=== PATIENT | female | born 1980 | race African-American/Black ===

== ENCOUNTER 2018-07-31 11:05 | Outpatient (CLI) | payer BC ==
[~2018-07-31] VITALS: Ht 170.2 cm; Wt 92.1 kg
[2018-07-31] MEDS ORDERED: EMPA1TAB15 PO (11:17)
[2018-07-31 11:44] LABS: BASOPHILS % (AUTO) 0 % (0-10); EOSINOPHILS # (AUTO) 0.3 10^3/uL (0.0-0.3); EOSINOPHILS % (AUTO) 2 % (0-10); HEMATOCRIT 40 % (35-52); HEMOGLOBIN 13.5 G/DL (11.5-16.0); LYMPHOCYTES # (AUTO) 4.8 X 10^3 (1.0-4.0); LYMPHOCYTES % (AUTO) 43 % (12-44); MEAN CORPUSCULAR HEMOGLOBIN 28 PG (25-34); MEAN CORPUSCULAR HGB CONC 34 G/DL (32-36); MEAN CORPUSCULAR VOLUME 81 FL (80-99); MEAN PLATELET VOLUME 10.3 FL (7.4-10.4); MONOCYTES # (AUTO) 1.1 X 10^3 (0.0-1.0); MONOCYTES % (AUTO) 10 % (0-12); NEUTROPHILS # (AUTO) 5.1 X 10^3 (1.8-7.8); NEUTROPHILS % (AUTO) 45 % (42-75); PLATELET COUNT 341 10^3/uL (130-400); RED BLOOD COUNT 4.89 10^6/uL (4.35-5.85); RED CELL DISTRIBUTION WIDTH 13.8 % (10.0-14.5); WHITE BLOOD COUNT 11.3 10^3/uL (4.3-11.0)
[2018-07-31 12:49] VITALS: BP 134/83
[2018-08-02] MEDS ORDERED: DOCU-143 PO (15:10)
[2018-08-02] MEDS ORDERED: IBUP-1773 PO (15:10)
[2018-08-02] MEDS ORDERED: OXYC1TAB87 PO (15:10)
== END 2018-07-31 11:40 | disposition home or self-care (01) ==
LOC: PREOP 11:05
PROVIDERS: ATTEND Obstetrics & Gynecology
DX: Z01.812 Encounter for preprocedural laboratory examination (principal); Z11.2 Encounter for screening for other bacterial diseases; N93.8 Other specified abnormal uterine and vaginal bleeding; N92.0 Excessive and frequent menstruation with regular cycle; D64.9 Anemia, unspecified
CPT/HCPCS: 36415; 84703; 85025; 86850; 86900; 86901; 87081

== ENCOUNTER 2018-08-02 12:24 | Day surgery (SDC) | payer BC ==
[~2018-08-02] VITALS: Ht 170.2 cm; Wt 92.1 kg
[~2018-08-02 12:24] MED LIST: EMPA1TAB15 PO; LACTATED RINGERS 1,000 ML IV PRN
[2018-08-02 12:45] VITALS: BP 121/85
[2018-08-02] MEDS ORDERED: NS (IVPB) 50 ML ONE (13:52)
[2018-08-02] MEDS ORDERED: ceFAZolin 1,000 MG/10 ML (ANCEF) VIAL ONE (13:52)
[2018-08-02] MEDS ORDERED: ceFAZolin INJECTION 1,000 MG in NS (IVPB) 50 ML IV ONE (14:00)
[2018-08-02] MEDS ORDERED: fentaNYL INJECTION 100 MCG/2 ML AMP ONE ×2 (14:38→16:29)
[2018-08-02] MEDS ORDERED: MIDAZOLAM 2 MG/2 ML (VERSED) VIAL ONE (14:38)
--- OUTSIDE RECORDS SUMMARY | 2018-08-02 14:42 | XMS REPORT ---
Author Author Tiana Mondragon [facility] Address [address] [place] [id number] Care Team Providers Care Singe Machine Operator Name Role Phone Tiana Mondragon PCP Allergies and Adverse Reactions Name Reaction Notes No known drug allergy Plan of Treatment Not available. Medications Not available. Problem List Not available. Vital Signs Date Time BP-Sys(mm[Hg] BP-Anisa(mm[Hg]) HR(bpm) RR(rpm) Temp WT HT HC BMI BSA BMI Percentile O2 Sat(%) 05/11/2018 3:32:00 PM 122 mmHg 84 mmHg 68 bpm 98.2 F 208 lbs 67 in 32.5771 kg/m 2.1119 m Social History Name Description Comments Tobacco Never smoker History of Procedures Date Ordered Description Order Status 05/11/2018 3:39 PM URINE TEST Reviewed 05/11/2018 12:00 AM BX/CURETT OF CERVIX W/SCOPE Returned 05/11/2018 12:00 AM EXAM/BIOPSY OF VAG W/SCOPE Returned 05/11/2018 12:00 AM ENDOCERV CURETTAGE W/SCOPE Returned Results Summary Date and Description Results 05/11/2018 4:02 PM Test, Urine negative History Of Immunizations Not available. History of Past Illness Name Date of Onset Comments Asthma Encounter for test, result negative May 11 2018 3:39PM Low grade squamous intraepith lesion on cytologic smear cervix (lgsil) May 11 2018 3:34PM Payers Insurance Name Company Name Plan Name Plan Number Policy Number Policy Group Number Start Date [facility] [id number] N/A History of Encounters Visit Date Visit Type Provider 05/11/[address] Tiana Mondragon MD
--- OUTSIDE RECORDS SUMMARY | 2018-08-02 14:42 | XMS REPORT ---
Author Author Tiana Mondragon [facility] Address [address] [place], [place] [address] Care Team Providers Care Professor Of Sport Management Name Role Phone Tiana Mondragon PCP Allergies [...] Status 05/11/2018 3:39 PM URINE TEST Reviewed Results Summary Date and Description Results 05/11/2018 [...] Policy Number Policy Group Number Start Date BCBS [facility] [id number] N/A History of Encounters Visit Date Visit Type Provider 05/11/[address] Tiana Mondragon MD
--- OUTSIDE RECORDS SUMMARY | 2018-08-02 14:42 | XMS REPORT ---
Author Author Tiana Mondragon [facility] Address [address] [place], [place] [address] Care Team Providers Care Dowel Pointer Name Role Phone Tiana Mondragon PCP Allergies [...] Number Policy Group Number Start Date BCBS [facility] [id number] N/A History of Encounters Visit Date Visit Type Provider 05/11/[address] Tiana Mondragon MD
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
--- OUTSIDE RECORDS SUMMARY | 2018-08-02 14:43 | XMS REPORT ---
Author Author OLGA SATPLETON [facility] Address [address] [place] [address] Care Team Providers Care Property Field Inspector Name Role Phone OLGA STAPLETON Unavailable PROBLEMS ALLERGIES No Information ENCOUNTERS IMMUNIZATIONS No Known Immunizations SOCIAL HISTORY No smoking Hx information available REASON FOR VISIT PLAN OF CARE VITAL SIGNS MEDICATIONS Unknown Medications RESULTS No Results PROCEDURES No Known procedures INSTRUCTIONS MEDICATIONS ADMINISTERED No Known Medications MEDICAL (GENERAL) HISTORY
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
--- OUTSIDE RECORDS SUMMARY | 2018-08-02 14:43 | XMS REPORT ---
Author Author Tiana Mondragon [facility] Address [address] [place], [place] [id number] Care Team Providers Care Game Developer Name Role Phone Tiana Mondragon PCP Allergies [...] test, result negative May 11 2018 3:39PM Payers Insurance Name Company Name Plan Name Plan Number Policy Number Policy Group Number [id number] N/A History of Encounters Visit Date Visit Type Provider 05/11/[address] Tiana Mondragon MD
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
--- OUTSIDE RECORDS SUMMARY | 2018-08-02 14:44 | XMS REPORT ---
Author Author OLGA STAPLETON [facility] [employer] Address Unknown Phone Unavailable Care Team Providers Care Computer Hardware Engineer Name Role Phone OLGA STAPLETON CP Unavailable Allergies, Adverse Reactions, Alerts Substance Reaction Event Type N.K.D.A. Info Not Available Non Drug Allergy Problems Problem Type Condition Code Onset Dates Condition Status Assessment Routine gynecological examination Z01.419 Active Assessment Surveillance for Depo-Provera contraception Z30.42 Active Problem Pain in soft tissues of limb 729.5 Active Problem Lumbago 724.2 Active Problem Surveillance for Depo-Provera contraception V25.49 Active Problem Screening for malignant neoplasm of the cervix V76.2 Active Problem Colitis, enteritis, and gastroenteritis of presumed infectious origin 009.1 Active Problem Unspecified contraceptive management V25.9 Active Problem Special screening examination, human papillomavirus [HPV] V73.81 Active Medications Medication Code System Code Instructions Start Date End Date Status Dosage Depo-Provera [facility] [id number] 150 MG/ML Intramuscular 1 ml Procedures Procedure Coding System Code Date Preventive Care Est Pt. Age 18-39 CPT-4 13252 Mar 11, 2016 CULTURE, BACTERIA, OTHER CPT-4 73346 Mar 11, 2016 Vital Signs Date/Time: Mar 11, 2016 Cardiac Monitoring Heart Rate 78 bpm Weight 193.2 lbs Height 67 in BMI 30.26 Index Blood Pressure Diastolic 80 mmHg Blood Pressure Systolic 118 mmHg Results No Known Results Summary Purpose eClinicalWorks Submission
--- OUTSIDE RECORDS SUMMARY | 2018-08-02 14:44 | XMS REPORT ---
Author Author OLGA STAPLETON [facility] eClinical[employer] Address Unknown Phone Unavailable Care Team Providers Care Slope Tender Name Role Phone OLGA STAPLETON Unavailable Allergies No Known Allergies Problems Problem Type Condition Code Onset Dates Condition Status Assessment Encounter for contraceptive management V25.9 Active Problem Pain in soft tissues of limb 729.5 Active Problem Lumbago 724.2 Active Problem Surveillance for Depo-Provera contraception V25.49 Active Problem Screening for malignant neoplasm of the cervix V76.2 Active Problem Colitis, enteritis, and gastroenteritis of presumed infectious origin 009.1 Active Problem Unspecified contraceptive management V25.9 Active Problem Special screening examination, human papillomavirus [HPV] V73.81 Active Medications No Known Medications Procedures Procedure Coding System Code Date THER/PROPH/DIAG INJ, SC/IM CPT-4 80686 Sep 18, 2015 DEPO PROVERA (150 MG/ML) CPT-4 J1050 Sep 18, 2015 Results No Known Results Summary Purpose eClinicalWorks Submission
--- OUTSIDE RECORDS SUMMARY | 2018-08-02 14:44 | XMS REPORT ---
Author Author OLGA STAPLETON [facility] [employer] Address Unknown Phone Unavailable Care Team Providers Care Warehouse Checker Name Role Phone OLGA STAPLETON CP Unavailable Allergies No Known Allergies Problems Problem Type Condition Code Onset Dates Condition Status Assessment Encounter for Depo-Provera contraception Z30.42 Active Problem Pain [...] Medications Procedures Procedure Coding System Code Date DEPO PROVERA (150 MG/ML) CPT-4 J1050 March 03, 2016 THER/PROPH/DIAG INJ, SC/IM CPT-4 12876 March 03, 2016 URINE TEST CPT-4 14959 March 03, 2016 Results No Known Results Summary Purpose eClinicalWorks Submission
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
--- OUTSIDE RECORDS SUMMARY | 2018-08-02 14:44 | XMS REPORT ---
Author Author OLGA STAPLETON [facility] [place] Address [address] [place] [address] Care Team Providers Care Nutritional Chemist Name Role Phone OLGA STAPLETON Unavailable PROBLEMS Type Condition ICD9-CM Code KEK14-UJ Code Onset Dates Condition Status SNOMED Code Problem Colitis, enteritis, and gastroenteritis of presumed infectious origin 009.1 Active 994103889 Assessment Acute bilateral low back pain with right-sided sciatica M54.41 Apr, Active 025501923 Problem Surveillance for Depo-Provera contraception V25.49 Active 108520393 Problem Pain in soft tissues of limb 729.5 Active 85113827 Problem Special screening examination, human papillomavirus [HPV] V73.81 Active 951070612 Problem Screening for malignant neoplasm of the cervix V76.2 Active 667221593 Problem Lumbago 724.2 Active 037992834 Problem Unspecified contraceptive management V25.9 Active 161556754 ALLERGIES Substance Reaction Event Type Date Status N.K.D.A. Unknown Non Drug Allergy Apr, Unknown SOCIAL HISTORY No smoking Hx information available PLAN OF CARE VITAL SIGNS Height 67 in 2016-04-27 Weight 193.4 lbs 2016-04-27 Heart Rate 81 bpm 2016-04-27 Respiratory Rate 2016-04-27 BMI 30.29 kg/m2 2016-04-27 Blood pressure systolic 130 mmHg 2016-04-27 Blood pressure diastolic 86 mmHg 2016-04-27 MEDICATIONS Medication Instructions Dosage Frequency Start Date End Date Duration Status Depo-Provera 150 MG/ML 1 ml Active Hydrocodone-Acetaminophen 5-325 MG Orally 3 times a day 1 tablet as needed 8h Apr, Apr, 05 days Active Ibuprofen 200 MG Orally Once a day 2 tab 24h Active Cyclobenzaprine HCl 10 mg Orally Three times a day 1 tablet 8h Apr, May, 14 days Active PredniSONE 20 mg Orally Once a day 3 tabs daily x 3 days, 2 tabs daily x 3 days, 1 tab daily x 3 days 24h 20 Apr, 2016 Apr, 9 days Active RESULTS Name Result Date Reference Range Xray : Spine, Lumbar 4 views PROCEDURES Procedure Date Ordered Related Diagnosis Body Site Office Visit, Est Pt., Level 3 Apr 27, 2016 IMMUNIZATIONS No Known Immunizations
--- OUTSIDE RECORDS SUMMARY | 2018-08-02 14:44 | XMS REPORT ---
Author Author JORJE KESSLER [facility] [employer] Address Unknown Phone Unavailable Care Team Providers Care Acoustical Tile Carpenters Supervisor Name Role Phone JORJE KESSLER Unavailable Allergies No Known Allergies Problems Problem Type Condition ICD-9 Code Onset Dates Condition Status Assessment Encounter [...] Date DEPO PROVERA (150 MG/ML) CPT-4 J1050 Mar 25, 2015 THER/PROPH/DIAG INJ, SC/IM CPT-4 72640 Mar 25, 2015 URINE TEST CPT-4 77250 Mar 25, 2015 Results Name Result Date Reference Range Unit Abnormality Flag TEST, URINE (IN HOUSE) Summary Purpose eClinicalWorks Submission
--- OUTSIDE RECORDS SUMMARY | 2018-08-02 14:44 | XMS REPORT ---
Author Author OLGA STAPLETON [facility] Address [address] [place] [address] Care Team Providers Care Per Diem Clerk Name Role Phone OLGA STAPLETON Unavailable PROBLEMS Type Condition ICD9-CM Code NQQ21-DA Code Onset Dates Condition Status SNOMED Code Problem Unspecified contraceptive management V25.9 Active 076092233 Problem Screening for malignant neoplasm of the cervix V76.2 Active 977206534 Problem Hyperlipidemia, unspecified hyperlipidemia type E78.5 Active 69194536 Problem Surveillance for Depo-Provera contraception V25.49 Active 808872266 Problem Pain in soft tissues of limb 729.5 Active 90457027 Problem Special screening examination, human papillomavirus [HPV] V73.81 Active 495914900 Problem Colitis, enteritis, and gastroenteritis of presumed infectious origin 009.1 Active 174704732 Problem Lumbago 724.2 Active 915887085 ALLERGIES No Information ENCOUNTERS Encounter Location Date Diagnosis [facility] [address] [id number] [place] [address] Feb Encounter for Depo-Provera contraception Z30.42 [facility] [address] [id number] [place] [address] December Bug bite, initial encounter W57.XXXA [facility] [address] [id number] [place] [address] December Weight gain R63.5 [facility] [address] [id number] [place] [address] Nov Encounter for Depo-Provera contraception Z30.42 [facility] [address] [id number] [place] [address] Nov Weight gain R63.5 [facility] [address] [place] [address] Aug Encounter for Depo-Provera contraception Z30.42 [facility] [address] [id number] [place] [address] Aug Whiplash injury to neck, initial encounter S13.4XXA [facility] [address] [id number] [place] [address] Jul Acute rhinosinusitis J01.90 [facility] [address] [id number] [place] [address] Jun Hyperlipidemia, unspecified hyperlipidemia type E78.5 [facility] [address] [id number] [place] [address] May Weight gain R63.5 ; Negative test Z32.02 and Encounter for Depo-Provera contraception Z30.42 [facility] [address] [id number] [place] [address] Mar Surveillance for Depo-Provera contraception V25.49 [facility] [address] [id number] [place] [address] Mar Weight gain R63.5 [facility] [address] [id number] [place] [address] Mar Well woman exam with routine gynecological exam Z01.419 ; Breast cancer screening Z12.31 and BCP ( control pills) initiation Z30.011 [facility] [address] [id number] [place] [address] Apr Acute bilateral low back pain with right-sided sciatica M54.41 [facility] [address] [id number] [place] [address] Mar Routine gynecological examination Z01.419 and Surveillance for Depo- Provera contraception Z30.42 [facility] [address] [id number] [place] [address] Feb Encounter for Depo-Provera contraception Z30.42 [facility] [address] [id number] [place] [address] Sep Encounter for contraceptive management V25.9 [facility] SINA Valentine TARIQE [id number] [place] [address] Jun Acute nasopharyngitis J00 and Depo contraception Z30.40 [facility] [place] [id number] [id number] Mar, Encounter for contraceptive management V25.9 [facility] [place] [id number] [place] [id number] Feb, Pharyngitis 462 [facility] [place] [id number] [place] [id number] Feb, Surveillance for Depo-Provera contraception V25.49 [facility] [place] [id number] [place] [id number] December, Unspecified contraceptive management V25.9 [facility] [address] [place] [address] Nov, [facility] [id number] [place] [address]6 Nov, [facility] [place] [id number][place] [id number] Oct, [facility] [address] [place] [address] Oct, [facility] [place] [id number] [place] [id number] Oct, [facility] [address] [place] [address] Oct, [facility] [place] [id number][place] [id number] Jun, [facility] [id number] [place] [address] Jun, [facility] [place] [id number][place] [id number] Mar, [facility] [id number] [place] [address] Mar, [facility] [address] [id number], [place] [address] Jan, [facility] [address] [id number] [place] [id number] Jan, [facility] [place] [facility] [address] [facility] [id number] [address] Jan, [facility] [address] [facility] [id number] [place] [id number] Jan, [facility] [place] [facility] [address] [facility] [id number] [place] [address] Jan, [facility] [address] [id number] [place] [id number] Jan, [facility] [place] [facility] [address] [facility] [id number][place] [address] Jan, [facility] [place] [facility] [address] [place] [address] Jan, [facility] [place] [facility] [address] [id number] [address] December, [facility] [place] [facility] [address] [facility] [id number] [place] [address] December, [facility] [address] [facility] [id number][place] [id number] December, [facility] [place] [facility] [address] [id number] [address] December, [facility] [address] [id number][place] [id number] Aug, [facility] [place] [facility] [address] [id number][place] [address] Aug, [facility] [place] [facility] [address] [facility] [id number], [place] [address] Nov, [facility] [address] [id number] [place] [id number] Aug, [facility] [address] [id number][place] [id number] Mar, [facility] [address] [id number] [place] [id number] Feb, [facility] [address] [id number] [place] [id number] Jan, [facility] [address] [id number] [place] [id number] Jan, [facility] [address] [id number] [place] [id number] Nov, [facility] [place] [facility] [address] [id number] [address] Jul, [facility] [place] [facility] [address] [id number], [place] [address] Jun, [facility] [place] [facility] [address] [facility] [id number] [address] Jun, [facility] [place] [facility] [address] [facility] [id number] [address] Jun, [facility] [place] [facility] [address] [facility] [id number][place] [address] Jun, [facility] [place] [facility] [address] [facility] [id number] [address] Jun, [facility] [place] [facility] [address] [id number] [address] 17 May, 2011 [facility] [place] [facility] [address] [facility] [id number] [address] May, [facility] [place] [facility] [address] [id number] [address] 10 May, 2011 [facility] [place] [facility] [address] [facility] [id number], [place] [address] 10 May, 2011 [facility] [place] [facility] [address] [facility] [id number], [place] [address] December, [facility] [place] [facility] [address] [facility] [id number] [address] 14 Nov, 2010 [facility] [place] [facility] [address] [facility] [id number] [place] [address] Aug, [facility] [address] [facility] [id number], [place] [address] Jun, [facility] [address] [facility] [id number] [address] Jun, [facility] [address] [facility] [id number] [address] Jun, [facility] [address] [facility] [id number] [address] May, IMMUNIZATIONS Vaccine Route Administration Date Status DEPO PROVERA (150 MG/ML) IM Intramuscular November 23, 2017 Administered SOCIAL HISTORY Never Assessed REASON FOR VISIT Depo Provera injection PLAN OF CARE VITAL SIGNS MEDICATIONS Unknown Medications RESULTS Name Result Date Reference Range TEST, URINE (IN HOUSE) RESULTS negative Lot # [id number] Control + Exp date 04/07/2019 PROCEDURES Procedure Date Ordered Result Body Site URINE TEST November 23, 2017 DEPO PROVERA (150 MG/ML) November 23, 2017 THER/PROPH/DIAG INJ, SC/IM November 23, 2017 INSTRUCTIONS MEDICATIONS ADMINISTERED No Known Medications MEDICAL (GENERAL) HISTORY Type Description Date Medical History asthma Surgical History hernia repair Hospitalization History child
--- OUTSIDE RECORDS SUMMARY | 2018-08-02 14:45 | XMS REPORT ---
Author Author OLGA STAPLETON [facility] Address [address] [place] [address] Care Team Providers Care Claims Consultant Name Role Phone OLGA STAPLETON Unavailable PROBLEMS Type Condition ICD9-CM Code QWC49-AM Code Onset Dates Condition Status SNOMED Code Problem Unspecified contraceptive management V25.9 Active 908828378 Problem Screening for malignant neoplasm of the cervix V76.2 Active 129812846 Problem Hyperlipidemia, unspecified hyperlipidemia type E78.5 Active 66613600 Problem Surveillance for Depo-Provera contraception V25.49 Active 056104122 Problem Pain in soft tissues of limb 729.5 Active 22265701 Problem Special screening examination, human papillomavirus [HPV] V73.81 Active 421570998 Problem Colitis, enteritis, and gastroenteritis of presumed infectious origin 009.1 Active 902646263 Problem Lumbago 724.2 Active 307208017 ALLERGIES No Information ENCOUNTERS Encounter Location Date [facility] [address] [id number] [place] [address] December Bug bite, initial encounter W57.XXXA [facility] [address] [id number] [place] [address] December Weight gain R63.5 [facility] [address] [id number] [place] [address] Nov Encounter for Depo-Provera contraception Z30.42 [facility] [address] [id number] [place] [address] Nov Weight gain R63.5 [facility] [address] [id number] [place] [address] Aug Encounter for Depo-Provera contraception Z30.42 [facility] [address] [id number] [place] [address] Aug Whiplash injury to neck, initial encounter S13.4XXA [facility] [address] [id number] [place] [address] Jul Acute rhinosinusitis J01.90 [facility] [address] [id number] [place] [address] Jun Hyperlipidemia, unspecified hyperlipidemia type E78.5 [facility] [address] [id number] [place] [address] May Weight gain R63.5 ; Negative test Z32.02 and Encounter for Depo-Provera contraception Z30.42 [facility] [address] [id number] [place] [address] Mar Surveillance for Depo-Provera contraception V25.49 [facility] [address] [id number] [place] [address] Mar Weight gain R63.5 [facility] [address] [id number] [place] [address] Mar Well woman exam with routine gynecological exam Z01.419 ; Breast cancer screening Z12.31 and BCP ( control pills) initiation Z30.011 [facility] [address] [id number] [place] [address] Apr Acute bilateral low back pain with right-sided sciatica M54.41 [facility] [address] [id number] [place] [address] Mar Routine gynecological examination Z01.419 and Surveillance for Depo- Provera contraception Z30.42 [facility] [place] [address] [id number] [place] [address] Feb Encounter for Depo-Provera contraception Z30.42 [facility] [address] [id number] [place] [address] Sep Encounter for contraceptive management V25.9 [facility] [address] [id number] [place] [address] Jun Acute nasopharyngitis J00 and Depo contraception Z30.40 [facility] [place] [address] [id number] [id number] Mar, Encounter for contraceptive management V25.9 [facility] [id number] [place] [id number] Feb, Pharyngitis 462 [facility] [place] [id number] [place] [id number] Feb, Surveillance for Depo-Provera contraception V25.49 [facility] [id number] [place] [id number] December, Unspecified contraceptive management V25.9 [facility] [id number] [place] [address] Nov, [facility] [place] [id number] [place] [address] Nov, [facility] [id number] [place] [id number] Oct, [facility] [place] [id number] [place] [address] Oct, [facility] [id number] [place] [address] [id number] Oct, [facility] [place] [id number] [place] [address] Oct, [facility] [id number] [place] [phone] Jun, [facility] [place] [id number] [place] [address] Jun, [facility] [id number] [place] [id number] Mar, [facility] [place] [id number] [place] [address] Mar, [facility] [place] [id number] [place] [address] Jan, [facility] [id number] [place] [id number] Jan, [facility] [place] [facility] [address] [id number] [place] [address] Jan, [facility] [address] [id number] [place] [id number] Jan, [facility] [place] [facility] [address] [id number] [place] [address] Jan, [facility] [address] [id number] [place] [id number] Jan, [facility] [place] [facility] [address] [id number] [place] [address] Jan, [facility] [place] [facility] [address] [facility] [id number] [place] [address] Jan, [facility] [place] [facility] [address] [facility] [id number] [place] [address] December, [facility] [place] [facility] [address] [facility] [id number] [place] [address] December, [facility] [address] [id number] [place]LAND[place] [id number] December, [facility] [place] [facility] [address] [facility] [id number] [place] [address] December, [facility] [address] [id number] [place] [phone] Aug, [facility] [place] [facility] [address] [facility] [id number] [address] Aug, [facility] [place] [facility] [address] [facility] [id number] [address] Nov, [facility] [address] [id number] [place] [id number] Aug, [facility] [address] [id number] [place] [id number] Mar, [facility] [address] [id number] [place] [phone] Feb, [facility] [address] [id number] [place] [phone] Jan, [facility] [address] [id number] [place] [id number] Jan, [facility] [address] [facility] [id number] [place] [phone] Nov, [facility] [place] [facility] [address] [id number] [place] [address] Jul, [facility] [place] [facility] [address] [id number] [place] [address], [place] [address] Jun, [facility] [place] [facility] [address] [id number] [place] [address] Jun, [facility] [place] [facility] [address] [id number] [place] [address], [place] [address] Jun, [facility] [place] [facility] [address] [facility] [id number] [place] [address] Jun, [facility] [place] [facility] [address] [facility] [id number] [address] Jun, [facility] [place] [facility] [address] [id number] [place] [address] May, [facility] [place] [facility] [address] [facility] [id number] [address] May, [facility] [place] [facility] [address] [facility] [id number][place] [address] May, [facility] [place] [facility] [address] [id number] [address] May, [facility] [place] [facility] [address] [id number] [address] December, [facility] [place] [facility] [address] [facility] [id number] [place] [address] 14 Nov, 2010 [facility] [place] [facility] [address] [id number][place] [address] 17 Aug, 2010 [facility] [place] [facility] [address] [id number][place] [address] 2546 Jun, [facility] [place] [address] [facility] [id number] [place] [address] Jun, [facility] [place] [address] [facility] [id number] [address] Jun, [facility] [place] [address] [facility] [id number][place] [address] May, IMMUNIZATIONS Vaccine Route Administration Date Status DEPO PROVERA (150 MG/ML) IM Intramuscular Aug 26, 2017 Administered SOCIAL HISTORY Never Assessed REASON FOR VISIT Depo Provera injection PLAN OF CARE VITAL SIGNS MEDICATIONS Unknown Medications RESULTS Name Result Date Reference Range TEST, URINE (IN HOUSE) 2017-08-26 RESULTS negative Lot # [id number] Control + Exp date 01/05/2019 PROCEDURES Procedure Date Ordered Result Body Site URINE TEST Aug 26, 2017 DEPO PROVERA (150 MG/ML) Aug 26, 2017 THER/PROPH/DIAG INJ, SC/IM Aug 26, 2017 INSTRUCTIONS MEDICATIONS ADMINISTERED No Known Medications MEDICAL (GENERAL) HISTORY Type Description Date Medical History asthma Surgical History hernia repair Hospitalization History child
--- OUTSIDE RECORDS SUMMARY | 2018-08-02 14:45 | XMS REPORT ---
Author Author OLGA STAPLETON [facility] [place] Address [address] [place] [address] Care Team Providers Care Manager Loss Prevention Name Role Phone OLGA STAPLETON Unavailable PROBLEMS Type Condition ICD9-CM Code WTE80-UY Code Onset Dates Condition Status SNOMED Code Problem Unspecified contraceptive management V25.9 Active 417620505 Problem Screening for malignant neoplasm of the cervix V76.2 Active 279697834 Problem Hyperlipidemia, unspecified hyperlipidemia type E78.5 Active 63050938 Problem Surveillance for Depo-Provera contraception V25.49 Active 409637218 Problem Pain in soft tissues of limb 729.5 Active 65378680 Problem Special screening examination, human papillomavirus [HPV] V73.81 Active 442119939 Problem Colitis, enteritis, and gastroenteritis of presumed infectious origin 009.1 Active 174418115 Problem Lumbago 724.2 Active 588472750 ALLERGIES No Information ENCOUNTERS Encounter Location Date Diagnosis [facility] [address] [id number] [place] [address] December [facility] Technologies[facility] [address] [id number] [place] [address] Nov Encounter for Depo-Provera contraception Z30.42 [facility] [address] [id number] [place] [address] Nov Weight gain R63.5 [facility] [address] [id number] [place] [address] Aug Encounter for Depo-Provera contraception Z30.42 [facility] [address] [id number] [place] [address] Aug Whiplash injury to neck, initial encounter S13.4XXA [facility]Qspe[facility] TechnologiesAlin [place] [address] [id number] [place] [address] Jul Acute rhinosinusitis J01.90 [facility] [address] [id number] [place] [address] Jun Hyperlipidemia, unspecified hyperlipidemia type E78.5 [facility] [address] [id number] [place] [address] May Weight gain R63.5 ; Negative test Z32.02 and Encounter for Depo-Provera contraception Z30.42 [facility] [place] [address] [id number] [place] [address] Mar Surveillance for Depo-Provera contraception V25.49 [facility] [place] [address] [id number] [place] [address] Mar Weight gain R63.5 [facility] [address] [id number] [place] [address] Mar Well woman exam with routine gynecological exam Z01.419 ; Breast cancer screening Z12.31 and BCP ( control pills) initiation Z30.011 [facility] [place] [address] [id number] [place] [address] Apr Acute bilateral low back pain with right-sided sciatica M54.41 [facility] [address] [id number] [place] [address] Mar Routine gynecological examination Z01.419 and Surveillance for Depo- Provera contraception Z30.42 [facility] [address] [id number] [place] [address] Feb Encounter for Depo-Provera contraception Z30.42 [facility] [place] [address] [id number] [place] [address] Sep Encounter for contraceptive management V25.9 [facility] [address] [id number] [place] [address] Jun Acute nasopharyngitis J00 and Depo contraception Z30.40 [facility] [address] [id number] [place] [id number] Mar, Encounter for contraceptive management V25.9 [facility] [address] [id number][place] [id number] Feb, Pharyngitis 462 [facility] [id number], [place] [address] Feb, Surveillance for Depo-Provera contraception V25.49 [facility] [address] [id number][place] [address] December, Unspecified contraceptive management V25.9 [facility] [id number] [place] [address] Nov, [facility] [place] [facility] [address] [place] [address] Nov, [facility] [id number] [place] [id number] Oct, [facility] [address]00565100[place], [place] [address] Oct, [facility] [id number] [place] [id number] Oct, [facility] [address] [place] [address]- 5895 Oct, [facility] [id number], [place] [address] Jun, [facility] [address]100[place], [place] [address] Jun, [facility] [id number], [place] [address] Mar, [facility] [address]100[place], [place] [address] Mar, [facility] [address]100[place], [place] [address] Jan, [facility] [id number], [place] [address] Jan, [facility] [address]100[place] [address] Jan, [facility] [address] [id number] [place] [id number] Jan, [facility] [place] [facility] [address] [id number] [place] [address] Jan, [facility] [address] [id number] [place] [id number] Jan, [facility] [place] [facility] [address] [facility] [id number], [place] [address]- [address] Jan, [facility] [place] [facility] [address] [facility] [id number], [place] [address]- [address] Jan, [facility] [place] [facility] [address] [facility] [id number] [place] [address]- 8[address] December, [facility] [place] [facility] [address] [facility] [id number] [place] [address]- 1484 December, [facility] [address] [id number], [place] [address] December, [facility] [place] [facility] [address] [facility] [id number], [place] [address]- [address] December, [facility] [address] [id number] [place] [id number] Aug, [facility] [place] [facility] [address] [facility] [id number], [place] [address]- [address]69 Aug, [facility] [place] [facility] [address] [facility] [id number], [place] [address]- 7[address] Nov, [facility] [address] [id number] [place] [phone] Aug, [facility] [address] [id number] [place] [address] Mar, [facility] [address] [id number] [place] [id number] Feb, [facility] [address] [id number] [place] [address] Jan, [facility] [address] [id number] [place] [id number] Jan, [facility] [address] [id number][place] [id number] 25 Nov, 2011 [facility] [place] [facility] [address] [id number] [place] [address]- [address] 08 Jul, 2011 [facility] [place] [facility] [address] [id number] [place] [address]- 4806 28 Jun, 2011 [facility] [place] [facility] [address] [id number] [place] [address]- 6368 Jun, [facility] [place] [facility] [address] [id number] [place] [address]- 7815 18 Jun, 2011 [facility] [place] [facility] [address] [id number] [place] [address]- 8665 15 Jun, 2011 [facility] [place] [facility] [address] [id number] [place] [address]- 6826 15 Jun, 2011 [facility] [place] [facility] [address] [id number] [place] [address]- 8501 17 May, 2011 [facility] [place] [facility] [address] [id number] [place] [address]- 8526 13 May, 2011 [facility] [place] [facility] [address] [id number] [place] [address]- 8801 10 May, 2011 [facility] [place] [facility] [address] [id number] [place] [address]- 9459 10 May, 2011 [facility] [place] [facility] [address] [id number] [place] [address]- 5606 December, [facility] [place] [facility] [address] [id number], [place] [address]- [address] 14 Nov, 2010 [facility] [place] [facility] [address] [id number] [place] [address]- 2505 17 Aug, 2010 [facility] [place] [facility] [address] [id number], [place] [address]- 68[address] 15 Jun, 2010 [facility] [place] [facility] [address] [id number], [place] [address]- 6668 15 Jun, 2010 [facility] [address] [facility] [id number] [place] [address]- [address] Jun, [facility] [address] [facility] [id number], [place] [address] May, IMMUNIZATIONS No Known Immunizations SOCIAL HISTORY Never Assessed REASON FOR VISIT phone call PLAN OF CARE VITAL SIGNS MEDICATIONS Unknown Medications RESULTS No Results PROCEDURES No Known procedures INSTRUCTIONS MEDICATIONS ADMINISTERED No Known Medications MEDICAL (GENERAL) HISTORY Type Description Date Medical History asthma Surgical History hernia repair Hospitalization History child
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
--- OUTSIDE RECORDS SUMMARY | 2018-08-02 14:45 | XMS REPORT ---
Author Author MUSHTAQ RIDDLE Organization [employer] Address Unknown Phone Unavailable Care Team Providers Care Thread Checker Name Role Phone MUSHTAQ RIDDLE CP Unavailable Allergies, Adverse Reactions, Alerts Substance Reaction Event Type N.K.D.A. Info Not Available Non Drug Allergy Problems Problem Type Condition Code Onset Dates Condition Status Assessment Acute nasopharyngitis J00 Active Assessment Depo contraception Z30.40 Active Problem Pain in soft tissues of [...] Date End Date Status Dosage Depo-Provera [facility] [address]-57 150 MG/ML Intramuscular 1 ml Procedures Procedure Coding System Code Date DEPO PROVERA (150 MG/ML) CPT-4 J1050 Jun 12, 2015 THER/PROPH/DIAG INJ, SC/IM CPT-4 30268 Jun 12, 2015 URINE TEST CPT-4 28168 Jun 12, 2015 Office Visit, Est Pt., Level 3 CPT-4 36433 Jun 12, 2015 Vital Signs Date/Time: Jun 12, 2015 Temperature 98.6 F Weight 201.7 lbs Height 67 in BMI 31.59 Index Blood Pressure Diastolic 78 mmHg Blood Pressure Systolic 120 mmHg Cardiac Monitoring Heart Rate 82 bpm Results No Known Results Summary Purpose [employer] Submission
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
--- OUTSIDE RECORDS SUMMARY | 2018-08-02 14:46 | XMS REPORT | CCD ---
Author Author EDSON SCHWARTZ Organization Unknown Address [address] [facility] [address] [place], [place] [id number] Care Team Providers Care Kiln Feeder Name Role Phone LISANDRA RAYGOZA, RITA Nelson LISANDRA RAYGOZA, RITA Barreto Vital Signs Unknown. Allergies Unknown. Procedures Unknown. History of Immunizations Unknown. Problems Unknown. Results Unknown. Medications Unknown. Medications Administered Unknown. Encounters Encounter Diagnosis Diagnosis Code Start Date BACKACHE NOS 7245 01/25/2014 Social History Smoking Status Code Start Date End Date Never smoker [id number] Patient Decision Aids Unknown. Discharge Instructions You were admitted to [facility] on 01/25/2014 with a principle diagnosis of BACKACHE NOS. You were discharged from [facility] on 01/25/2014. Should you have any questions prior to discharge, please contact a member of your healthcare team. If you have left the hospital and have any questions, please contact your primary care physician. Chief Complaint and Reason For Visit Chief Complaint Date of Onset BACK PAIN HIP PAIN Function Status Unknown. Referral/Transition of Care Unknown.
--- OUTSIDE RECORDS SUMMARY | 2018-08-02 14:46 | XMS REPORT | Continuity of Care Document ---
Author Author [facility] Organization [facility] Address Unknown Phone Unavailable Allergies There is no data. Medications There is no data. Problems Date Dx Coded Attending Type Code Diagnosis Diagnosed By 06/02/2010 RITA HOWELL APRN 493.90 ASTHMA UNSPECIFIED 06/02/2010 RITA HOWELL APRN 616.10 BACTERIAL VAGINOSIS 06/02/2010 RITA HOWELL APRN V76.10 BREAST SCREENING, UNSPECIFIED 06/02/2010 HENRIQUEZ DO, JACKELIN K 493.90 ASTHMA UNSPECIFIED 06/02/2010 HENRIQUEZ DO, JACKELIN K 616.10 BACTERIAL VAGINOSIS 06/02/2010 HENRIQUEZ DO, JACKELIN K V76.10 BREAST SCREENING, UNSPECIFIED 06/02/2010 HENRIQUEZ DO, JACKELIN K 493.90 ASTHMA UNSPECIFIED 06/02/2010 HENRIQUEZ DO, JACKELIN K 616.10 BACTERIAL VAGINOSIS 06/02/2010 HENRIQUEZ DO, JACKELIN K V76.10 BREAST SCREENING, UNSPECIFIED 06/02/2010 HENRIQUEZ DO, JACKELIN K 493.90 ASTHMA UNSPECIFIED 06/02/2010 HENRIQUEZ DO, JACKELIN K 616.10 BACTERIAL VAGINOSIS 06/02/2010 HENRIQUEZ DO, JACKELIN K V76.10 BREAST SCREENING, UNSPECIFIED 06/02/2010 HENRIQUEZ DO, JACKELIN K 493.90 ASTHMA UNSPECIFIED 06/02/2010 HENRIQUEZ DO, JACKELIN K 616.10 BACTERIAL VAGINOSIS 06/02/2010 HENRIQUEZ DO, JACKELIN K V76.10 BREAST SCREENING, UNSPECIFIED 06/02/2010 CRISLLUPE DROP WORKERMADANJORJE E 493.90 ASTHMA UNSPECIFIED 06/02/2010 HELLLUPE DROP WORKER, JORJE E 616.10 BACTERIAL VAGINOSIS 06/02/2010 HELLWIG DROP WORKER JORJE E V76.10 BREAST SCREENING, UNSPECIFIED 06/02/2010 HENRIQUEZ DO, JACKELIN K 493.90 ASTHMA UNSPECIFIED 06/02/2010 HENRIQUEZ DO, JACKELIN K 616.10 BACTERIAL VAGINOSIS 06/02/2010 HENRIQUEZ DO, JACKELIN K V76.10 BREAST SCREENING, UNSPECIFIED 06/22/2010 HOWELL DROP WORKERRITA 382.00 OTITIS MEDIA ACUTE SUPPURATIVE 06/22/2010 HOWELL DROP WORKERRITA 780.60 FEVER, UNSPECIFIED 06/22/2010 HOWELL DROP WORKERRITA 786.07 WHEEZING 06/22/2010 HOWELL DROP WORKER, RITA Luna 786.2 COUGH 06/22/2010 HENRIQUEZ DO, JACKELIN K 382.00 OTITIS MEDIA ACUTE SUPPURATIVE 06/22/2010 HENRIQUEZ DO, JACKELIN K 780.60 FEVER, UNSPECIFIED 06/22/2010 HENRIQUEZ DO, JACKELIN K 786.07 WHEEZING 06/22/2010 HENRIQUEZ DO, JACKELIN K 786.2 COUGH 06/22/2010 HENRIQUEZ DO, JACKELIN K 382.00 OTITIS MEDIA ACUTE SUPPURATIVE 06/22/2010 HENRIQUEZ DO, JACKELIN K 780.60 FEVER, UNSPECIFIED 06/22/2010 HENRIQUEZ DO, JACKELIN K 786.07 WHEEZING 06/22/2010 HENRIQUEZ DO, JACKELIN K 786.2 COUGH 06/22/2010 HENRIQUEZ DO, JACKELIN K 382.00 OTITIS MEDIA ACUTE SUPPURATIVE 06/22/2010 HENRIQUEZ DO, JACKELIN K 780.60 FEVER, UNSPECIFIED 06/22/2010 HENRIQUEZ DO, JACKELIN K 786.07 WHEEZING 06/22/2010 HENRIQUEZ DO, JACKELIN K 786.2 COUGH 06/22/2010 HENRIQUEZ DO, JACKELIN K 382.00 OTITIS MEDIA ACUTE SUPPURATIVE 06/22/2010 HENRIQUEZ DO, JACKELIN K 780.60 FEVER, UNSPECIFIED 06/22/2010 HENRIQUEZ DO, JACKELIN K 786.07 WHEEZING 06/22/2010 HENRIQUEZ DO, JACKELIN K 786.2 COUGH 06/22/2010 HELLWIG DROP WORKER, JORJE E 382.00 OTITIS MEDIA ACUTE SUPPURATIVE 06/22/2010 HELLWIG DROP WORKER, JORJE E 780.60 FEVER, UNSPECIFIED 06/22/2010 HELLWIG DROP WORKER, JORJE E 786.07 WHEEZING 06/22/2010 HELLWIG DROP WORKER, JORJE E 786.2 COUGH 06/22/2010 HENRIQUEZ DO, JACKELIN K 382.00 OTITIS MEDIA ACUTE SUPPURATIVE 06/22/2010 HENRIQUEZ DO, JACKELIN K 780.60 FEVER, UNSPECIFIED 06/22/2010 HENRIQUEZ DO, JACKELIN K 786.07 WHEEZING 06/22/2010 HENRIQUEZ DO, JACKELIN K 786.2 COUGH 08/24/2010 RITA HOWELL APRN 034.0 STREPTOCOCCAL SORE THROAT 08/24/2010 HENRIQUEZ DO, JACKELIN K 034.0 STREPTOCOCCAL SORE THROAT 08/24/2010 HENRIQUEZ DO, JACKELIN K 034.0 STREPTOCOCCAL SORE THROAT 08/24/2010 HENRIQUEZ DO, JACKELIN K 034.0 STREPTOCOCCAL SORE THROAT 08/24/2010 HENRIQUEZ DO, JACKELIN K 034.0 STREPTOCOCCAL SORE THROAT 08/24/2010 HELJORJE COMBS APRN 034.0 STREPTOCOCCAL SORE THROAT 08/24/2010 HENRIQUEZ DO, JACKELIN K 034.0 STREPTOCOCCAL SORE THROAT 11/19/2010 RITA HOWELL APRN 278.02 OVERWEIGHT 11/19/2010 RITA HOWELL APRN 780.4 DIZZINESS AND VERTIGO 11/19/2010 RITA HOWELL APRN 786.05 SHORTNESS OF BREATH 11/19/2010 HENRIQUEZ DO, JACKELIN K 278.02 OVERWEIGHT 11/19/2010 HENRIQUEZ DO, JACKELIN K 780.4 DIZZINESS AND VERTIGO 11/19/2010 HENRIQUEZ DO, JACKELIN K 786.05 SHORTNESS OF BREATH 11/19/2010 HENRIQUEZ DO, JACKELIN K 278.02 OVERWEIGHT 11/19/2010 HENRIQUEZ DO, JACKELIN K 780.4 DIZZINESS AND VERTIGO 11/19/2010 HENRIQUEZ DO, JACKELIN K 786.05 SHORTNESS OF BREATH 11/19/2010 HENRIQUEZ DO, JACKELIN K 278.02 OVERWEIGHT 11/19/2010 HENRIQUEZ DO, JACKELIN K 780.4 DIZZINESS AND VERTIGO 11/19/2010 HENRIQUEZ DO, JACKELIN K 786.05 SHORTNESS OF BREATH 11/19/2010 HENRIQUEZ DO, JACKELIN K 278.02 OVERWEIGHT 11/19/2010 HENRIQUEZ DO, JACKELIN K 780.4 DIZZINESS AND VERTIGO 11/19/2010 HENRIQUEZ DO, JACKELIN K 786.05 SHORTNESS OF BREATH 11/19/2010 JORJE KESSLER APRN E 278.02 OVERWEIGHT 11/19/2010 JORJE KESSLER APRN E 780.4 DIZZINESS AND VERTIGO 11/19/2010 JORJE KESSLER APRN E 786.05 SHORTNESS OF BREATH 11/19/2010 HENRIQUEZ DO, JACKELIN K 278.02 OVERWEIGHT 11/19/2010 HENRIQUEZ DO, JACKELIN K 780.4 DIZZINESS AND VERTIGO 11/19/2010 HENRIQUEZ DO, JACKELIN K 786.05 SHORTNESS OF BREATH 11/26/2010 RITA HOWELL APRN 780.79 OTHER MALAISE AND FATIGUE 11/26/2010 HENRIQUEZ DO, JACKELIN K 780.79 OTHER MALAISE AND FATIGUE 11/26/2010 HENRIQUEZ DO, JACKELIN K 780.79 OTHER MALAISE AND FATIGUE 11/26/2010 HENRIQUEZ DO, JACKELIN K 780.79 OTHER MALAISE AND FATIGUE 11/26/2010 HENRIQUEZ DO, JACKELIN K 780.79 OTHER MALAISE AND FATIGUE 11/26/2010 JORJE KESSLER APRN 780.79 OTHER MALAISE AND FATIGUE 11/26/2010 HENRIQUEZ DO, JACKELIN K 780.79 OTHER MALAISE AND FATIGUE 12/10/2010 RITA HOWELL APRN 425.4 OTHER PRIMARY CARDIOMYOPATHIES 12/10/2010 HENRIQUEZ DO, JACKELIN K 425.4 OTHER PRIMARY CARDIOMYOPATHIES 12/10/2010 HENRIQUEZ DO, JACKELIN K 425.4 OTHER PRIMARY CARDIOMYOPATHIES 12/10/2010 HENRIQUEZ DO, JACKELIN K 425.4 OTHER PRIMARY CARDIOMYOPATHIES 12/10/2010 HENRIQUEZ DO, JACKELIN K 425.4 OTHER PRIMARY CARDIOMYOPATHIES 12/10/2010 JORJE KESSLER APRN 425.4 OTHER PRIMARY CARDIOMYOPATHIES 12/10/2010 HENRIQUEZ DO, JACKELIN K 425.4 OTHER PRIMARY CARDIOMYOPATHIES 12/18/2010 RITA HOWELL APRN 246.2 THYROID CYST 12/18/2010 RITA HOWELL APRN 786.50 chest pain or discomfort 12/18/2010 HENRIQUEZ DO, JACKELIN K 246.2 THYROID CYST 12/18/2010 HENRIQUEZ DO, JACKELIN K 786.50 chest pain or discomfort 12/18/2010 HENRIQUEZ DO, JACKELIN K 246.2 THYROID CYST 12/18/2010 HENRIQUEZ DO, JACKELIN K 786.50 chest pain or discomfort 12/18/2010 HENRIQUEZ DO, JACKELIN K 246.2 THYROID CYST 12/18/2010 HENRIQUEZ DO, JACKELIN K 786.50 chest pain or discomfort 12/18/2010 HENRIQUEZ DO, JACKELIN K 246.2 THYROID CYST 12/18/2010 HENRIQUEZ DO, JACKELIN K 786.50 chest pain or discomfort 12/18/2010 JORJE KESSLER APRN 246.2 THYROID CYST 12/18/2010 JORJE KESSLER APRN 786.50 chest pain or discomfort 12/18/2010 HENRIQUEZ DO, JACKELIN K 246.2 THYROID CYST 12/18/2010 HENRIQUEZ DO, JACKELIN K 786.50 chest pain or discomfort 05/17/2011 RITA HOWELL APRN V72.31 INJECTION SPECIALIST EXAM, ROUTINE 05/17/2011 HENRIQUEZ DO, JACKELIN K V72.31 INJECTION SPECIALIST EXAM, ROUTINE 05/17/2011 HENRIQUEZ DO, JACKELIN K V72.31 INJECTION SPECIALIST EXAM, ROUTINE 05/17/2011 HENRIQUEZ DO, JACKELIN K V72.31 INJECTION SPECIALIST EXAM, ROUTINE 05/17/2011 HENRIQUEZ DO, JACKELIN K V72.31 INJECTION SPECIALIST EXAM, ROUTINE 05/17/2011 JORJE KESSLER APRN V72.31 INJECTION SPECIALIST EXAM, ROUTINE 05/17/2011 HENRIQUEZ DO, JACKELIN K V72.31 INJECTION SPECIALIST EXAM, ROUTINE 06/22/2011 RITA HOWELL APRN 788.5 OLIGURIA AND ANURIA 06/22/2011 HENRIQUEZ DO, JACKELIN K 788.5 OLIGURIA AND ANURIA 06/22/2011 HENRIQUEZ DO, JACKELIN K 788.5 OLIGURIA AND ANURIA 06/22/2011 HENRIQUEZ DO, JACKELIN K 788.5 OLIGURIA AND ANURIA 06/22/2011 HENRIQUEZ DO, JACKELIN K 788.5 OLIGURIA AND ANURIA 06/22/2011 JORJE KESSLER APRN 788.5 OLIGURIA AND ANURIA 06/22/2011 HENRIQUEZ DO, JACKELIN K 788.5 OLIGURIA AND ANURIA 07/05/2011 RITA HOWELL APRN 466.0 BRONCHITIS, ACUTE 07/05/2011 HENRIQUEZ DO, JACKELIN K 466.0 BRONCHITIS, ACUTE 07/05/2011 HENRIQUEZ DO, JACKELIN K 466.0 BRONCHITIS, ACUTE 07/05/2011 HENRIQUEZ DO, JACKELIN K 466.0 BRONCHITIS, ACUTE 07/05/2011 HENRIQUEZ DO, JACKELIN K 466.0 BRONCHITIS, ACUTE 07/05/2011 JORJE KESSLER APRN 466.0 BRONCHITIS, ACUTE 07/05/2011 HENRIQUEZ DO, JACKELIN K 466.0 BRONCHITIS, ACUTE 12/01/2011 RITA HOWELL APRN 477.9 RHINITIS 12/01/2011 HENRIQUEZ DO JACKELIN K 477.9 RHINITIS 12/01/2011 HENRIQUEZ DO, JACKELIN K 477.9 RHINITIS 12/01/2011 HENRIQUEZ DO, JACKELIN K 477.9 RHINITIS 12/01/2011 HENRIQUEZ DO, JACKELIN K 477.9 RHINITIS 12/01/2011 JORJE KESSLER APRN 477.9 RHINITIS 12/01/2011 HENRIQUEZ DO, JACKELIN K 477.9 RHINITIS 09/07/2012 RITA HOWELL APRN 009.1 GASTROENTERITIS, ACUTE INFECTIOUS 09/07/2012 HENRIQUEZ DO, JACKELIN K 009.1 GASTROENTERITIS, ACUTE INFECTIOUS 09/07/2012 HENRIQUEZ DO, JACKELIN K 009.1 GASTROENTERITIS, ACUTE INFECTIOUS 09/07/2012 HENRIQUEZ DO, JACKELIN K 009.1 GASTROENTERITIS, ACUTE INFECTIOUS 09/07/2012 HENRIQUEZ DO, JACKELIN K 009.1 GASTROENTERITIS, ACUTE INFECTIOUS 09/07/2012 JORJE KESSLER APRN 009.1 GASTROENTERITIS, ACUTE INFECTIOUS 09/07/2012 HENRIQUEZ DO, JACKELIN K 009.1 GASTROENTERITIS, ACUTE INFECTIOUS 09/07/2012 RITA HOWELL APRN 626.9 MENSTRUATION AND OTHER ABNORMAL BLEEDING FROM FEMALE GENITAL TRACT 09/04/2013 HENRIQUEZ DO, JACKELIN K 626.9 MENSTRUATION AND OTHER ABNORMAL BLEEDING FROM FEMALE GENITAL TRACT 12/28/2013 HENRIQUEZ DO JACKELIN K V25.9 CONTRACEPTION MANAGEMENT 12/28/2013 HENRIQUEZ DO JACKELIN K V73.81 HPV SCREENING 12/28/2013 HENRIQUEZ MADAN ISAACA K V76.2 CERVICAL CANCER SCREENING (PAP SMEAR) 12/28/2013 MADAN HENRIQUEZ DOA K V25.9 CONTRACEPTION MANAGEMENT 12/28/2013 FLORENCE ISAAC JACKELIN K V73.81 HPV SCREENING 12/28/2013 HENRIQUEZ DO JACKELIN K V76.2 CERVICAL CANCER SCREENING (PAP SMEAR) 12/28/2013 HENRIQUEZ DO JACKELIN K V25.9 CONTRACEPTION MANAGEMENT 12/28/2013 HENRIQUEZ DO JACKELIN K V73.81 HPV SCREENING 12/28/2013 HENRIQUEZ DO JACKELIN K V76.2 CERVICAL CANCER SCREENING (PAP SMEAR) 12/28/2013 JORJE KESSLER APRN V25.9 CONTRACEPTION MANAGEMENT 12/28/2013 JORJE KESSLER APRN V73.81 HPV SCREENING 12/28/2013 JORJE KESSLER APRN V76.2 CERVICAL CANCER SCREENING (PAP SMEAR) 12/28/2013 JACKELIN HENRIQUEZ DO V25.9 CONTRACEPTION MANAGEMENT 12/28/2013 JACKELIN HENRIQUEZ DO V73.81 HPV SCREENING 12/28/2013 JACKELIN HENRIQUEZ DO V76.2 CERVICAL CANCER SCREENING (PAP SMEAR) 12/28/2013 JACKELIN HENRIQUEZ DO 626.9 MENSTRUATION AND OTHER ABNORMAL BLEEDING FROM FEMALE GENITAL TRACT 01/11/2014 JACKELIN HENRIQUEZ DO 626.9 MENSTRUATION AND OTHER ABNORMAL BLEEDING FROM FEMALE GENITAL TRACT 01/11/2014 JACKELIN HENRIQUEZ DO 626.9 MENSTRUATION AND OTHER ABNORMAL BLEEDING FROM FEMALE GENITAL TRACT 01/24/2014 JACKELIN HENRIQUEZ DO 724.2 LUMBAGO 01/24/2014 JACKELIN HENRIQUEZ DO 729.5 PAIN IN LIMB 01/24/2014 JORJE KESSLER APRN E 724.2 LUMBAGO 01/24/2014 JORJE KESSLER APRN E 729.5 PAIN IN LIMB 01/24/2014 JACKELIN HENRIQUEZ DO 724.2 LUMBAGO 01/24/2014 JACKELIN HENRIQUEZ DO K 729.5 PAIN IN LIMB 01/24/2014 JACKELIN HENRIQUEZ DO 626.9 MENSTRUATION AND OTHER ABNORMAL BLEEDING FROM FEMALE GENITAL TRACT 04/04/2014 JORJE KESSLER APRN E 626.9 MENSTRUATION AND OTHER ABNORMAL BLEEDING FROM FEMALE GENITAL TRACT 07/01/2014 JACKELIN HENRIQUEZ DO K 626.9 MENSTRUATION AND OTHER ABNORMAL BLEEDING FROM FEMALE GENITAL TRACT 05/02/2018 P N930 Postcoital and contact bleeding Procedures Code Description [place] [address] STREP A (IN-HOUSE) 09/04/2013 61699 THERAPUTIC INJ SQ/IM 12/28/2013 J1050 DEPO PROVERA 12/28/2013 15009 GC/CHLAM PROBE ([facility]) 12/28/2013 Q0091 PAP SMEAR OBTAIN SMEAR 12/28/2013 84326 TEST, URINE (IN- HOUSE) 12/28/2013 35480 CULTURE UROGENITAL 12/31/2013 17056 PAP SMEAR 01/02/2014 77335 STREP A (IN-HOUSE) 01/11/2014 08254 ROUTINE VENIPUNCTURE 01/24/2014 10548 D-DIMER 01/24/2014 49681 THERAPUTIC INJ SQ/IM 04/04/2014 J1050 DEPO PROVERA 04/04/2014 24565 TEST, URINE (IN- HOUSE) 04/04/2014 J1050 DEPO PROVERA 07/01/2014 21833 TEST, URINE (IN- HOUSE) 07/01/2014 60400 THERAPUTIC INJ SQ/IM 07/01/2014 Results Test Result Range SUREPATH PAP AND HPV mRNA E6/E7 - 04/26/18 11:04 CLINICAL INFORMATION: NRG LMP: NRG PREV. PAP: NRG PREV. BX: NA NRG SOURCE: Cervix NRG STATEMENT OF ADEQUACY: NRG INTERPRETATION/RESULT: NRG ROPE COILING MACHINE OPERATOR: NRG HPV mRNA E6/E7, SUREPATH VIAL Detected NOT DETECTED GENERAL CATEGORIZATION: NRG COMMENT: NRG PATHOLOGIST: NRG COMMENT NRG CULTURE, GENITAL - 04/26/18 11:04 CULTURE, GENITAL SEE NOTE NRG Encounters ACCT No. Visit Date/Time Discharge Status Pt. Type Provider Facility Loc./Unit Complaint [id number] 05/11/2018 16:22:01 05/11/2018 23:59:59 CLS Outpatient GiancarloTiana [id number] 07/20/2018 08:40:00 07/20/2018 23:59:59 CLS Outpatient OLGA STAPLETON [id number] 04/26/2018 09:00:00 Document Registration [id number] 05/02/2018 16:49:00 Document Registration [id number] 07/01/2014 15:53:00 07/01/2014 23:59:59 CLS Outpatient JACKELIN HENRIQUEZ DO [id number] 04/04/2014 13:42:00 04/04/2014 23:59:59 CLS Outpatient JORJE KESSLER APRN [id number] 01/24/2014 10:02:00 01/24/2014 23:59:59 CLS Outpatient JACKELIN HENRIQUEZ DO [id number] 01/11/2014 14:08:00 01/11/2014 23:59:59 CLS Outpatient JACKELIN HENRIQUEZ DO [id number] 12/28/2013 09:10:00 12/28/2013 23:59:59 CLS Outpatient JACKELIN HENRIQUEZ DO [id number] 09/04/2013 15:35:00 09/04/2013 23:59:59 CLS Outpatient JACKELIN HENRIQUEZ DO [id number] 09/07/2012 13:24:00 09/07/2012 23:59:59 CLS Outpatient RITA HOWELL APRN [id number] 08/16/2018 12:00:00 KUMAR NUNEZ MD, DONA [facility] DYSFUNCTIONAL UTERINE BLEEDING
--- OUTSIDE RECORDS SUMMARY | 2018-08-02 14:46 | XMS REPORT ---
Author Author OLGA STAPLETON [facility] Address [address] [place] [address] Care Team Providers Care Barrel Handler Name Role Phone OLGA STAPLETON Unavailable PROBLEMS Type Condition ICD9-CM Code RSX33-DR Code Onset Dates Condition Status SNOMED Code Problem Unspecified contraceptive management V25.9 Active 817370449 Problem Screening for malignant neoplasm of the cervix V76.2 Active 614681926 Problem Hyperlipidemia, unspecified hyperlipidemia type E78.5 Active 68038217 Problem Surveillance for Depo-Provera contraception V25.49 Active 662732889 Problem Pain in soft tissues of limb 729.5 Active 69427311 Problem Special screening examination, human papillomavirus [HPV] V73.81 Active 791804953 Problem Colitis, enteritis, and gastroenteritis of presumed infectious origin 009.1 Active 500055183 Problem Lumbago 724.2 Active 397176081 ALLERGIES No Known Allergies ENCOUNTERS Encounter Location Date Diagnosis [facility] [address] [id number] [place] [address] December [facility] [address] [id number] [place] [address] December Bug bite, initial encounter W57.XXXA [facility] [address] [id number] [place] [address] December Weight gain R63.5 [facility] [address] [id number] [place] [address] Nov Encounter for Depo-Provera contraception Z30.42 [facility] [address] [id number] [place] [address] Nov Weight gain R63.5 [facility] [address] [id number] [place] [address] Aug Encounter for Depo-Provera contraception Z30.42 [facility] [address] [id number] [place] [address] Aug Whiplash injury to neck, initial encounter S13.4XXA [facility] [address] [id number] [place] [address] Jul Acute rhinosinusitis J01.90 [facility] [address] [id number] [place] [address] Jun Hyperlipidemia, unspecified hyperlipidemia type E78.5 [facility] [address] [id number] [place] [address] May Weight gain R63.5 ; Negative test Z32.02 and Encounter for Depo-Provera contraception Z30.42 [facility] [address] [id number] [place] [address] Mar Surveillance for Depo-Provera contraception V25.49 [facility] [address] [id number] [place] [address] Mar Weight gain R63.5 [facility] [address] [id number] [place] [address] Mar Well woman exam with routine gynecological exam Z01.419 ; Breast cancer screening Z12.31 and BCP ( control pills) initiation Z30.011 [facility] [address] [id number] [place] [address] Apr Acute bilateral low back pain with right-sided sciatica M54.41 [facility] [address] [id number] [place] [address] Mar Routine gynecological examination Z01.419 and Surveillance for Depo- Provera contraception Z30.42 [facility] [address] [id number] [place] [address] Feb Encounter for Depo-Provera contraception Z30.42 [facility] [address] [id number] [place] [address] 11 Sep Encounter for contraceptive management V25.9 [facility] [address] [id number] [place] [address] Jun Acute nasopharyngitis J00 and Depo contraception Z30.40 [facility] [place] [id number][place] [id number] Mar, Encounter for contraceptive management V25.9 [facility] [place] [id number][place] [id number] Feb, Pharyngitis 462 [facility] [place] [id number] [place] [id number] Feb, Surveillance for Depo-Provera contraception V25.49 [facility] [place] [id number] [place] [id number] December, Unspecified contraceptive management V25.9 [facility] [address]00565100[place] [address] Nov, [facility] [id number] [place] [address] Nov, [facility] [place] [id number][place] [id number] Oct, [facility] [id number] [place] [address] Oct, [facility] [place] [id number], [place] [id number] Oct, [facility] [address]00565100[place] [address] Oct, [facility] [place] [id number][place] [id number] Jun, [facility] [address]00565100[place] [address] Jun, [facility] [place] [id number], [place] [id number] Mar, [facility] [address]65100[place] [address] Mar, [facility] [id number] [place] [id number] Jan, [facility] [address] [id number][place] [id number] Jan, [facility] [place] [facility] [address] [id number] [address] Jan, [facility] [address] [id number] [place] [id number] Jan, [facility] [place] [facility] [address] [facility] [id number] [address] Jan, [facility] [address] [id number], [place] [id number] Jan, [facility] [place] [facility] [address] [facility] [id number] [address] Jan, [facility] [place] [facility] [address] [facility] [id number] [place] [address] Jan, [facility] [place] [facility] [address] [id number] [address] December, [facility] [place] [facility] [address] [facility] [id number] [address] December, [facility] [address] [id number], [place] [id number] December, [facility] [address] [facility] [id number] [place] [address] December, [facility] [address] [id number], [place] [id number] Aug, [facility] [place] [facility] [address] [id number] [place] [address] Aug, [facility] [place] [facility] [address] [facility] [id number] [place] [address] Nov, [facility] [address] [id number] [place] [id number] Aug, [facility] [address] [id number], [place] [id number] Mar, [facility] [address] [id number] [place] [id number] Feb, [facility] [address] [id number] [place] [id number] Jan, [facility] [address] [id number] [place] [id number] Jan, [facility] [address] [id number] [place] [id number] Nov, [facility] [place] [facility] [address] [id number] [place] [address] Jul, [facility] [place] [facility] [address] [id number] [place] [address] Jun, [facility] [place] [facility] [address] [id number] [place] [address], [place] [address] Jun, [facility] [place] [facility] [address] [facility] [id number] [place] [address] Jun, [facility] [place] [facility] [address] [facility] [id number] [address] Jun, [facility] [place] [facility] [address] [facility] [id number] [place] [address] Jun, [facility] [place] [facility] [address] [facility] [id number] [place] [address] 17 May, 2011 [facility] [place] [facility] [address] [facility] [id number] [place] [address] May, [facility] [place] [facility] [address] [facility] [id number] [address] May, [facility] [place] [facility] [address] [id number] [address] 10 May, 2011 [facility] [place] [facility] [address] [facility] [id number] [place] [address] December, [facility] [place] [facility] [address] [id number] [address] 14 Nov, 2010 [facility] [place] [facility] [address] [id number] [place] [address] Aug, [facility] [address] [facility] [id number] [place] [address] Jun, [facility] [address] [facility] [id number] [place] [address] Jun, [facility] [address] [facility] [id number] [place] [address] Jun, [facility] [address] [facility] [id number] [place] [address] May, IMMUNIZATIONS Vaccine Route Administration Date Status DEPO PROVERA (150 MG/ML) IM Intramuscular Jun 01, 2017 Administered SOCIAL HISTORY Never Assessed REASON FOR VISIT control consult., Pt want to start back on depo. BA Bales PLAN OF CARE Activity Details Follow Up 4 Weeks Reason:f/u weight mgmt VITAL SIGNS Height 67 in 2017-06-01 Weight 213.1 lbs 2017-06-01 Temperature 98.0 degrees Fahrenheit 2017-06-01 Heart Rate 88 bpm 2017-06-01 Respiratory Rate 18 2017-06-01 BMI 33.37 kg/m2 2017-06-01 Blood pressure systolic 112 mmHg 2017-06-01 Blood pressure diastolic 78 mmHg 2017-06-01 MEDICATIONS Medication Instructions Dosage Frequency Start Date End Date Duration Status Phentermine HCl 37.5 MG Orally Once a day 1 tablet 24h Mar, 30 days Active Depo-Provera 150 MG/ML Intramuscular one time 1 ml May, Aug, 90 days Active RESULTS Name Result Date Reference Range TEST, URINE (IN HOUSE) 2017-06-01 RESULTS negative Lot # [id number] Control + Exp date 10/2018 PROCEDURES Procedure Date Ordered Result Body Site URINE TEST Jun 01, 2017 THER/PROPH/DIAG INJ, SC/IM Jun 01, 2017 DEPO PROVERA (150 MG/ML) Jun 01, 2017 INSTRUCTIONS MEDICATIONS ADMINISTERED No Known Medications MEDICAL (GENERAL) HISTORY Type Description Date Medical History asthma Surgical History hernia repair Hospitalization History child
[2018-08-02] MEDS ORDERED: BUP/EPI 0.5% 1:200,000 (SENSORCAINE) 30 ML VIAL ONE (15:03)
--- NOTE | 2018-08-02 15:07 | Progress Note-Pre Operative ---
Pre-Operative Progress Note H&P Reviewed The H&P was reviewed, patient examined and no changes noted. Date Seen by Provider: Aug 02, 2018 Time Seen by Provider: 15:06 Date H&P Reviewed: Aug 02, 2018 Time H&P Reviewed: 15:07 Pre-Operative Diagnosis: Dysfunctional uterine bleeding/menorrhagia/uterine megaly DONA NUNEZ MD Aug 02, 2018 15:07
--- NOTE | 2018-08-02 15:08 | Progress Note-Post Operative ---
Post-Operative Progess Note Surgeon (s)/Undercover Agent (s) Surgeon DONA NUNEZ MD Undercover Agent: Francisca Simmons Pre-Operative Diagnosis Dysfunctional uterine bleeding/menorrhagia/uterine megaly Post-Operative Diagnosis Same with pathology pending Procedure & Operative Findings Date of Procedure 08/02/18 Procedure Performed/Findings TL H with bilateral salpingectomies Anesthesia Type GETA Estimated Blood Loss Estimated blood loss (mL): MIN Specimens/Packing Specimens Removed Uterus and fallopian tubes Packing: None DONA NUNEZ MD Aug 02, 2018 15:08
[2018-08-02] MEDS ORDERED: IBUP-1773 PO (15:10)
[2018-08-02] MEDS ORDERED: DOCU-143 PO (15:10)
[2018-08-02] MEDS ORDERED: OXYC1TAB87 PO (15:10)
--- NOTE | 2018-08-02 15:11 | Discharge Instructions ---
Discharge Instructions Discharge Medications New, Converted or Re-Newed RX: RX on Chart Patient Instructions Patient Instructions: As directed Return to The Hospital For: as directed Activity & Diet Discharge Diet: No Restrictions Activity as Tolerated: No Orders-Post D/C & Referrals Follow Up Appt: Return to clinic on Tuesday, August 04, 2018 at 930 a.m. for staple removal Call to make follow up appt. for patient in 4 weeks. Activity: Rest for 24 hours, than as tolerated. Wound Care: May remove Band-Aid tomorrow. Replace as desired. Keep incisions clean and dry. Wash daily with soap and water. Please call in RX to patient pharmacy. Diet: As tolerated-Clear Liquids only if nauseated. Tomorrow, may shower or tub bathe as desired. No driving for 24 hours, no alcoholic beverages for 24 hours, and nothing per vagina (no tampons, douching, or intercourse) for 8 weeks. Patient to return to the clinic as soon as possible for: Temperature greater than 101F, Severe Pain, Foul discharge from incision or vagina, Excessive Bleeding (more than a period). DONA NUNEZ MD Aug 02, 2018 15:11
[2018-08-02] MEDS ORDERED: ROCURONIUM 10 MG/ML 5 ML SYRINGE IV ONE (15:25)
[2018-08-02] MEDS ORDERED: LIDOCAINE PF 2% 5 ML (XYLOCAINE) VIAL ONE (15:39)
[2018-08-02] MEDS ORDERED: SEVOFLURANE (ULTANE) 15 ML INHAL SOLN ONE ×5 (15:39→16:43)
[2018-08-02] MEDS ORDERED: ONDANSETRON 4 MG/2 ML (SDV) Z0FRAN ONE (15:39)
[2018-08-02] MEDS ORDERED: proPOfol 200 MG/20 ML (DIPRIVAN) VIAL IV ONE (15:39)
[2018-08-02] MEDS ORDERED: KETOROLAC 30 MG/ML VIAL ONE (15:39)
[2018-08-02] MEDS ORDERED: HYDROmorphone 2 MG/ML VIAL (DILAUDID) ONE (16:21)
[2018-08-02] MEDS ORDERED: PROMETHAZINE INJ 25 MG/ML (PHENERGAN) AMP ONE (16:22)
[2018-08-02] MEDS ORDERED: WATER (STERILE) FOR INJECTION 10 ML ONE (16:22)
[2018-08-02] MEDS ORDERED: ESTROGENS CONJ IV 25 MG/5 ML (PREMARIN) VIAL ONE (16:22)
[2018-08-02] MEDS ORDERED: morphine INJ 10 MG/ML 1ML (SYR OR VIAL) ONE (16:22)
[2018-08-02] MEDS: KETOROLAC 30 MG/ML VIAL IVP SCH ×2 (16:38→22:44)
[2018-08-02] MEDS ORDERED: D5 LR IV SOLUTION 1,000 ML IV SCH (16:41)
[2018-08-02] MEDS ORDERED: ESTROGENS CONJ IV 25 MG/5 ML (PREMARIN) VIAL IVP ONE (16:45)
[2018-08-02] MEDS ORDERED: ONDANSETRON 4 MG/2 ML (SDV) Z0FRAN IVP PRN ×2 (16:45→17:30)
[2018-08-02] MEDS ORDERED: MEPERIDINE (DEMEROL) INJ 100 MG/ML IM PRN (16:45)
[2018-08-02] MEDS ORDERED: PROMETHAZINE INJ 25 MG/ML (PHENERGAN) AMP IM PRN (16:45)
[2018-08-02] MEDS ORDERED: oxyCODONE/APAP 5/325MG (PERCOCET 5) TABLET PO PRN (16:45)
[2018-08-02] MEDS: morphine INJ 10 MG/ML 1ML (SYR OR VIAL) IVP ONE ×2 (16:59→17:05)
[2018-08-02] MEDS ORDERED: PROMETHAZINE INJ 25 MG/ML (PHENERGAN) AMP IVP ONE (17:30)
[2018-08-02] MEDS ORDERED: HYDROmorphone 2 MG/ML VIAL (DILAUDID) IV ONE (17:30)
--- NOTE | 2018-08-02 18:00 | NUR ---
EDSON STOREY presented to unit via BED from RECOVERY, accompanied by KAYLYN AFTER HAVING SURGERY. FAMILY AT THE BEDSIDE. REPORT RECEIVED FROM Danilo MIRANDA RN.
[2018-08-02 18:05] VITALS: BP 112/75
[2018-08-02] MEDS ORDERED: D5 LR IV SOLUTION 1,000 ML IV ONE (18:15)
--- NOTE | 2018-08-02 18:15 | NUR ---
1805: VS OBTAINED. 181: INITIAL SHIFT ASSESSMENT COMPLETED; SEE INTERVENTION FOR FURTHER. FAMILY REMAINS AT THE BEDSIDE. SCDS ON, PÉREZ TO D/D. CALL LIGHT WITHIN REACH.
--- NOTE | 2018-08-02 19:00 | NUR ---
PT RESTING. FAMILY REMAINS AT THE BEDSIDE. NEW BAG OF IV FLUIDS HUNG AND INFUSING; SEE EMAR FOR FURTHER.
--- NOTE | 2018-08-02 19:20 | NUR ---
REPORT TO Kari HAYWARD RN.
--- NOTE | 2018-08-02 19:50 | NUR ---
pt vomiting small clear amount of emesis, and c/o pain. demerol and phenergan shot given. family remain at bedside.
[2018-08-02 22:46] VITALS: BP 119/77
--- NOTE | 2018-08-03 00:25 | NUR ---
pt requesting holland be removed. holland dc'd. pt tolerated well.
--- NOTE | 2018-08-03 01:13 | OPERATIVE REPORT ---
DATE OF SERVICE: 08/02/2018 PREOPERATIVE DIAGNOSES: Dysfunctional uterine bleeding, menorrhagia. POSTOPERATIVE DIAGNOSES: Dysfunctional uterine bleeding, menorrhagia with pathology pending. OPERATIVE PROCEDURE: Total laparoscopic hysterectomy with bilateral salpingectomy. OPERATIVE DESCRIPTION: With the patient in the supine position under satisfactory general anesthesia, she was prepped and draped in the usual fashion after being repositioned in dorsal lithotomy position in the [facility] for robotic abdominal and vaginal surgery. Weighted speculum placed in posterior fornix of vagina, cervix exposed and grasped anteriorly with single tooth tenaculum. Uterus sounded to 9 cm with uterine sound. The cervix was then serially dilated with Valentin dilators to accommodate a Jemima II manipulator, which was placed using a 6 mm x 8 cm uterine probe and a 30 mm colpotomy ring. Sutures of #1 Vicryl placed at 3 and 9 o'clock position of the cervix. The tenaculum and speculum were removed. Oglesby catheter placed in the urinary bladder. The patient brought in low dorsal lithotomy position. A 12 mm incision was made 3 cm superior to the umbilicus. Veress needle was placed through the stab wound in the base of the umbilicus. The correct placement confirmed with the water drop test. The abdomen was insufflated with 2.4 liters of carbon dioxide and the Veress needle was removed and a 12 mm Optiview laparoscopic port placed through the supraumbilical incision. Ports of 8 mm were placed 9 cm lateral to the umbilicus at the level of umbilicus on each side. All three incision sites were infiltrated with 0.25% Marcaine with epinephrine prior to incisions. The patient was placed in Trendelenburg allowing the bowel to spill up out of the pelvis. The uterus was exposed. It was quite mottled in appearance consistent with adenomyosis. The ovaries were normal in appearance as was the fallopian tube. The appendix was seen. It was a normal vermiform appendix. Laparoscope was brought back to the pelvis. Right fallopian tube was grasped and elevated. The mesosalpinx was clamped, cauterized and divided stepwise across to the utero-ovarian pedicle on the right, utero-ovarian pedicle was then clamped, cauterized and divided along with the round ligament, the broad ligament and then eventually the cardinal ligament. Same procedure performed on the left, eventually allowing for removal of both fallopian tubes with the uterus and conserving both ovaries. The anterior lower uterine segment peritoneum was exposed and then using a bipolar fenestrated grasper on the right, placed the vessel sealer. The anterior lower uterine segment peritoneum was divided. The bladder was carefully dissected down off lower uterine segment and colpotomy incision was started at the 12 o'clock position that was continued circumferentially until the entire colpotomy ring was exposed and then the uterus with the tubes still attached was extracted through the vagina. The vaginal cuff was closed with two sutures of V-Loc barbed suture starting first on the right angle and continuing 3/[address] and then from the left angle and completing the closure of the last couple of stitches suture was used to bring the bladder peritoneum back on to the vaginal cuff. Care was taken to assure inclusion of the uterine pedicles with the angle stitches on each side. The pelvis was examined for hemostasis, which was complete. Estimated blood loss was minimal at this point. There was a small amount of blood in the cul-de-sac which is left in situ for her to reabsorb. There was no remaining abnormal pathology. The procedure was terminated at this point. The operative instruments were removed under direct vision as were the ports. The abdomen was evacuated of the insufflating gas in process of removing the ports. The skin incisions were stapled. The fascia at the supraumbilical incision was closed with [id number] suture of 2-0 Vicryl. Speculum was replaced in the vagina. The vaginal cuff was examined. It was completely hemostatic and completely reapproximated. The Oglesby catheter was draining clear yellow urine. Oglesby catheter was left to dependent drainage. The patient was uneventfully awakened from her general anesthesia and transferred to the recovery room in stable condition. Job ID: [id number] DocumentID: [id number] Dictated Date: 08/02/2018 16:45:28 Sat Act Instructor Date: 08/03/2018 01:12:53 Dictated By: DONA NUNEZ MD
[2018-08-03 02:00] VITALS: BP 123/75
--- NOTE | 2018-08-03 03:09 | NUR ---
PT ASSISTED TO THE BATHROOM. POSITIVE VOID. 200CC OF CLEAR YELLOW URINE.
[2018-08-03 04:57] VITALS: BP 123/82
--- NOTE | 2018-08-03 07:30 | NUR ---
here. dismissal orders received.
--- NOTE | 2018-08-03 08:02 | Progress Note-Standard ---
Standard Progress Note Progress Notes/Assess & Plan Date Seen by a Provider: Aug 03, 2018 Time Seen by a Provider: 08:01 Progress/Assessment & Plan This patient without complaint. She is ambulating, voiding, tolerating oral intake well has good pain control. Patient is requesting discharge home. Vital signs are stable. Patient is afebrile. Vital Signs 08/02/18 08/03/18 18:05 04:57 Temp 99.3 Pulse 75 Resp 18 B/P (MAP) 123/82 (96) Pulse Ox 95 O2 Delivery Room Air The abdomen is benign. She may show no clubbing cyanosis. There is no Homans sign. Assessment plan postoperative day number 1 doing well. Plan for discharge home with follow-up in clinic Final Diagnosis Menorrhagia/dysfunctional uterine bleeding DONA NUNEZ MD Aug 03, 2018 08:02
[2018-08-03] MEDS ORDERED: DOCUSATE SODIUM 100 MG (COLACE) CAP PO SCH (09:00)
[2018-08-03 09:45] VITALS: BP 68/82
--- NOTE | 2018-08-03 09:45 | NUR ---
initial shift assessment completed, see interventions for further. dismissal instructions given, verbalizes understanding. reviewed follow up appointments and Rx's medication administration schedule. verbalizes understanding. signature page singed, placed on chart.
--- NOTE | 2018-08-03 09:45 | NUR ---
dismissal instructions given, verbalizes understanding. reviewed Rx's and follow up appointments. signature page signed, placed on chart.
[2018-08-03] MEDS ORDERED: IBUPROFEN 800 MG (MOTRIN) TAB PO ONE (09:48)
--- NOTE | 2018-08-03 09:48 | NUR ---
[facility] Rx's called into [facility] pharmacy in [place], [place] per pt's request.
--- NOTE | 2018-08-03 10:08 | NUR ---
pt ambulated to private vehicle with this RN and daughter @ side. pt stable with no sx's of distress noted.
[2018-08-03] MEDS ORDERED: IBUPROFEN 800 MG (MOTRIN) TAB PO SCH (18:00)
== END 2018-08-03 10:08 | disposition home or self-care (01) ==
LOC: SDC 12:24 → WS 18:11 → SDC 08-03 10:08
PROVIDERS: ATTEND Obstetrics & Gynecology
DX: N93.8 Other specified abnormal uterine and vaginal bleeding (principal); N92.0 Excessive and frequent menstruation with regular cycle; N87.0 Mild cervical dysplasia; E11.9 Type 2 diabetes mellitus without complications; J45.909 Unspecified asthma, uncomplicated; E66.9 Obesity, unspecified; Z68.31 Body mass index [BMI] 31.0-31.9, adult; Z79.84 Long term (current) use of oral hypoglycemic drugs
CPT/HCPCS: 82962; 86850; 86900; 86901; 94664

== ENCOUNTER → 2018-10-16 | Outpatient (CLI) | payer BC ==
[~2018-10-16] MED LIST changes: +DOCU-143 PO; +IBUP-1773 PO; -LACTATED RINGERS 1,000 ML IV PRN; +OXYC1TAB87 PO
--- NOTE | 2018-10-16 13:46 | Diagnostic Imaging Report ---
INDICATION: Palpable lump in the left breast. COMPARISON: No prior mammograms are available for comparison. TECHNIQUE: 2D and 3D bilateral diagnostic mammography was performed with CAD. A BB marker was placed at the area of palpable abnormality in the lower and inner left breast. FINDINGS: Scattered fibroglandular densities are identified bilaterally. No mass or malignant-appearing microcalcifications are seen. The axillae are unremarkable. IMPRESSION: No mammographic features suspicious for malignancy are identified. Even so, directed sonographic interrogation of the area of palpable abnormality in the left breast is recommended and will be performed today. ACR BI-RADS Category 0: Incomplete. (Needs additional imaging evaluation). Result letter will be mailed to the patient. Note: At least 10% of breast cancer is not imaged by mammography. Dictated by: Dictated on workstation # [id number]
--- NOTE | 2018-10-16 19:01 | Diagnostic Imaging Report ---
INDICATION: Palpable lump in the left breast. COMPARISON: Correlation is made with the diagnostic mammogram from earlier this same day. TECHNIQUE: Sonographic interrogation of the area of lump in the left breast was performed. This is approximately the 8:30 location 2 cm from the nipple. FINDINGS: No sonographic abnormality is seen. No solid or cystic mass is detected. IMPRESSION: No sonographic abnormality is identified. Close clinical and self breast exams are recommended to confirm stability of the palpable abnormality. Negative imaging should not necessarily preclude biopsy of a clinically suspicious palpable abnormality. ACR BI-RADS Category 1: Negative. Dictated by: Dictated on workstation # [id number]
== END ==
LOC: RAD 13:12
PROVIDERS: ATTEND Obstetrics & Gynecology
DX: N63.24 Unspecified lump in the left breast, lower inner quadrant (principal)
CPT/HCPCS: 76642; 77066